=== PATIENT | male | born 1945 | race Caucasian/White ===

== ENCOUNTER 2017-10-29 15:52 | Emergency (ER) | payer MEDICARE, OTHER ==
[~2017-10-29 15:52] MED LIST: ACET325 PO; AMLO2.5T PO; NAPR250T57 PO; ONDA1TAB17 SL; OXYC1SOL5 PO; PROZ40CA PO; TAB-TAB PO
[2017-10-29 16:14] VITALS: BP 140/76; PULSE 68; RESP 18; TEMP 98; O2SAT 97
[2017-10-29 16:16] VITALS: BP 140/76; PULSE 68; RESP 18; O2SAT 96
--- NOTE | 2017-10-29 16:27 | PD ---
HPI Chief Complaint: Chest Pain Time Seen by Provider: 16:20 Travel History International Travel<30 days: No Contact w/Intl Traveler<30days: No Traveled to known affect area: No History of Present Illness HPI 72-year-old male patient presents emergency department for evaluation of irregular heartbeat. Patient was walking his dog earlier and felt like his chest was heavy and called 911. When EMS arrived they told him he might have atrial fibrillation. Patient denies any chest pain, shortness breath, nausea, vomiting, diarrhea, lightheadedness. Patient states his chest never hurt but it felt heavy. The heaviness did not radiate but said directly in the middle of his chest. Patient states he drank 3 cups of coffee this morning, had diet Coke with lunch and then a glass of wine. He is not sure if that contributed to this event. Patient's major medical history is anxiety/depression and arthritis. PFSH Past Medical History Arthritis: Yes Asthma: Yes ( A CHILD) Autoimmune Disease: No Blood Disorders: No Anxiety: Yes Depression: Yes Cancer: Yes (SKIN, ) Cardiovascular Problems: Yes ( MURMUR ) Chemotherapy: No Diabetes: No Diminished Hearing: Yes Endocrine: No Gastrointestinal Disorders: Yes (ACID REFLUX) GERD: Yes Glaucoma: No Genitourinary: No Hepatitis: No Hiatal Hernia: No Hypertension: No Immune Disorder: No Implanted Vascular Access Dvce: Yes Medical other: No Musculoskeletal: Yes (OSTEOARTHRITIS, OSTEOPOROSIS) Neurologic: No Psychiatric: Yes ( SEVERE CLAUSTRAPHOBIA, "BIOCHEMICAL" DEPRESSION ) Reproductive: No Respiratory: No Radiation Therapy: No Thyroid Disease: No ?: Not Past Surgical History Abdominal Surgery: Yes (ABD HERNIA REPAIR WITH MESH 1989; ABDOMIPLASTY 1989) AICD: No Appendectomy: Yes Body Medical Devices: BILATERAL KNEE REPLACEMENT Cardiac Surgery: No Ear Surgery: No Endocrine Surgery: No Eye Surgery: No Genitourinary Surgery: No Joint Replacement: Yes (ALEJANDRA. KNEES, RIGHT HIP) Neurologic Surgery: Yes (2008 KYPHOPLASTY X 2) Oral Surgery: Yes (TONSILLECTOMY ) Pacemaker: No Thoracic Surgery: No Other Surgery: Yes (SUBMUCOUSAL RESECTIONS/ NOSE SINUSES,L1 SX. 09/21/08) Social History Alcohol Use: Yes (BEER, WINE 4-5 DRINKS DAILY ) Tobacco Use: No Substance Use: No Allergies-Medications (Allergen,Severity, Reaction): Coded Allergies: enoxaparin (Unverified Allergy, Intermediate, RASH, 10/29/17) latex (Unverified Allergy, Intermediate, Rash, 10/29/17) diclofenac (Unverified Adverse Reaction, Intermediate, nausea gi upset, ) 04/04/16 DENIES ALLERGY etodolac (Unverified Adverse Reaction, Intermediate, nausea gi upset, 10/29) 04/04/16 DENIES ALLERGY flurbiprofen (Unverified Adverse Reaction, Intermediate, nausea gi upset, 10/29/17) 04/04/16 DENIES ALLERGY ibuprofen (Unverified Adverse Reaction, Intermediate, nausea gi upset, 10/29/17) 04/04/16 DENIES ALLERGY indomethacin (Unverified Adverse Reaction, Intermediate, nausea gi upset, 10/29/17) 04/04/16 DENIES ALLERGY ketoprofen (Unverified Adverse Reaction, Intermediate, nausea gi upset, ) 04/04/16 DENIES ALLERGY ketorolac (Unverified Adverse Reaction, Intermediate, nausea gi upset, 10/29/17) 04/04/16 DENIES ALLERGY naproxen (Unverified Adverse Reaction, Intermediate, nausea gi upset, 10/29) 04/04/16 DENIES ALLERGY oxaprozin (Unverified Adverse Reaction, Intermediate, nausea gi upset, 10/29/17) 04/04/16 DENIES ALLERGY Reported Meds & Prescriptions Reported Meds & Active Scripts Active Amlodipine Besylate 2.5 mg (Amlodipine Besylate) 2.5 Mg Tab 1 Tab PO DAILY 30 Days Oxycodone/Acetaminophen 5 mg/325 mg 5 mg/325 mg Tab 1 Tab PO Q4H PRN Reported Ondansetron Hcl (Ondansetron HCl) 8 Mg Tab 8 Mg SL DIRECTED PRN Tylenol (Acetaminophen) 325 Mg Tab 650 Mg PO BID Naprosyn (Naproxen) 250 Mg Tab 500 Mg PO BID Multivitamin (Multivitamins) 1 Tab Tab 1 Tab PO DAILY Prozac (Fluoxetine HCl) 40 Mg Cap 80 Mg PO DAILY Review of Systems Except as stated in HPI: all other systems reviewed are Neg Physical Exam Narrative GENERAL: Well-nourished, well-developed 72-year-old male patient in no acute distress. Nontoxic appearing. SKIN: Focused skin assessment warm/dry. HEAD: Normocephalic. Atraumatic. EYES: No scleral icterus. No injection or drainage. NECK: Supple, trachea midline. No JVD or lymphadenopathy. CARDIOVASCULAR: Regular rate and rhythm without murmurs, gallops, or rubs at this time. RESPIRATORY: Breath sounds equal bilaterally. No accessory muscle use. GASTROINTESTINAL: Abdomen soft, non-tender, nondistended. MUSCULOSKELETAL: No obvious deformity, ecchymosis, erythema, cyanosis, or edema. BACK: Nontender without obvious deformity. No CVA tenderness. Data Data Last Documented VS Vital Signs Date Time Temp Pulse Resp B/P (MAP) Pulse Ox O2 Delivery O2 Flow Rate FiO2 10/29/17 16:16 68 18 140/76 (97) 96 Room Air 10/29/17 16:14 98.0 Orders Orders Electrocardiogram (10/29/17 16:24) Basic Metabolic Panel (Bmp) (10/29/17 16:24) Ckmb (Isoenzyme) Profile (10/29/17 16:24) Complete Blood Count With Diff (10/29/17 16:24) Magnesium (Mg) (10/29/17 16:24) Prothrombin Time / Inr (Pt) (10/29/17 16:24) Act Partial Throm Time (Ptt) (10/29/17 16:24) Troponin I (10/29/17 16:24) Chest, Single Ap (10/29/17 16:24) Ecg Monitoring (10/29/17 16:24) Bilateral Bp Monitoring (10/29/17 16:24) Iv Access Insert/Monitor (10/29/17 16:24) Oximetry (10/29/17 16:24) Oxygen Administration (10/29/17 16:24) Sodium Chloride 0.9% Flush (Ns Flush) (10/29/17 16:30) Labs Laboratory Tests Test 10/29/17 16:50 White Blood Count 6.8 TH/MM3 Red Blood Count 4.33 MIL/MM3 Hemoglobin 13.2 GM/DL Hematocrit 39.5 % Mean Corpuscular Volume 91.2 FL Mean Corpuscular Hemoglobin 30.6 PG Mean Corpuscular Hemoglobin Concent 33.5 % Red Cell Distribution Width 13.6 % Platelet Count 227 TH/MM3 Mean Platelet Volume 7.3 FL Neutrophils (%) (Auto) 65.9 % Lymphocytes (%) (Auto) 19.1 % Monocytes (%) (Auto) 11.0 % Eosinophils (%) (Auto) 3.3 % Basophils (%) (Auto) 0.7 % Neutrophils # (Auto) 4.5 TH/MM3 Lymphocytes # (Auto) 1.3 TH/MM3 Monocytes # (Auto) 0.7 TH/MM3 Eosinophils # (Auto) 0.2 TH/MM3 Basophils # (Auto) 0.0 TH/MM3 CBC Comment DIFF FINAL Differential Comment Prothrombin Time 11.4 SEC Prothromb Time International Ratio 1.1 RATIO Activated Partial Thromboplast Time 25.5 SEC Blood Urea Nitrogen 19 MG/DL Creatinine 0.91 MG/DL Random Glucose 82 MG/DL Calcium Level 8.3 MG/DL Magnesium Level 2.2 MG/DL Sodium Level 137 MEQ/L Potassium Level 3.9 MEQ/L Chloride Level 102 MEQ/L Carbon Dioxide Level 29.9 MEQ/L Anion Gap 5 MEQ/L Estimat Glomerular Filtration Rate 81 ML/MIN Total Creatine Kinase 87 U/L Troponin I LESS THAN 0.02 NG/ML MDM Medical Decision Making Medical Screen Exam Complete: Yes Emergency Medical Condition: Yes Differential Diagnosis Differential diagnoses include but not limited to A. fib, electrolyte abnormality, coronary event, arrhythmia Narrative Course 72-year-old male patient presents emergency department for evaluation of chest pressure. Patient called EMS while walking his dog and he was found to be an A. fib. Patient was transported to the hospital. Upon arrival to the hospital A. fib had resolved spontaneously. CBC, CMP, magnesium, PT/INR, troponin, chest x-ray ordered and pending. EKG ordered and pending. EKG shows sinus rhythm. Blood work shows no acute abnormalities. Patient was discharged home with instructions to start a full dose aspirin daily. 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 Diagnosis Primary Impression: Atrial fibrillation Qualified Codes: I48.91 - Unspecified atrial fibrillation Referrals: [facility] Primary Care Physician Patient Instructions: A-fib (Atrial Fibrillation) (ED), General Instructions Additional Instructions: Please return to emergency department if your symptoms return or worsen. Follow up with your primary care provider. Start taking full dose 325mg aspirin daily. Disposition: 01 DISCHARGE HOME Condition: Stable Luis A,Justa GURROLA Oct 29, 2017 16:27
[2017-10-29] MEDS ORDERED: SODIUM CHLORIDE 0.9% FLUSH 10 ML FLUSH IVF PRN (16:30)
--- NOTE | 2017-10-29 16:47 | RADRPT ---
EXAM DATE/TIME: 10/29/2017 16:34 [facility] COMPARISON: No previous studies available for comparison. INDICATIONS : Palpitations. MEDICAL HISTORY : Arthritis. SURGICAL HISTORY : None. ENCOUNTER: Initial ACUITY: 1 day PAIN SCORE: 0/10 LOCATION: Bilateral chest FINDINGS: A single view of the chest demonstrates moderate enlargement of the heart. Lungs are clear. Old right-sided rib fractures are noted. Moderate to severe arthropathy is noted of the right shoulder. Left shoulder replacement is noted. CONCLUSION: Cardiomegaly without evidence of acute cardiopulmonary process. Petar Barnhart MD on October 29, 2017 at 16:44 Board Certified Radiologist. This report was verified electronically.
[2017-10-29 17:00] VITALS: BP_SYST 146; BP_SYST 165; BP_DIAS 69; BP_DIAS 78; PULSE 57; RESP 18; O2SAT 96; O2SAT 97
[2017-10-29 17:09] LABS: AUTOMATED NEUTROPHIL # 4.5 TH/MM3 (1.8-7.7); BASOPHIL % 0.7 % (0.0-2.0); EOSINOPHIL # 0.2 TH/MM3 (0-0.4); EOSINOPHIL % 3.3 % (0.0-4.0); HEMATOCRIT 39.5 % (39.0-51.0); HEMO FLAGS DIFF FINAL; LYMPH % 19.1 % (9.0-44.0); LYMPHOCYTE # 1.3 TH/MM3 (1.0-4.8); MEAN CELL VOLUME 91.2 FL (80.0-100.0); MEAN CORPUSCULAR HEMOGLOBIN 30.6 PG (27.0-34.0); MEAN CORPUSCULAR HGB CONC 33.5 % (32.0-36.0); NEUT % 65.9 % (16.0-70.0); PLATELET COUNT 227 TH/MM3 (150-450); RED BLOOD COUNT 4.33 MIL/MM3 (4.50-5.90); RED CELL DISTRIBUTION WIDTH 13.6 % (11.6-17.2); WHITE BLOOD COUNT 6.8 TH/MM3 (4.0-11.0)
[2017-10-29 17:21] LABS: APTT (PATIENT) 25.5 SEC (24.3-30.1); INTERNATIONAL NORMALIZED RATIO 1.1 RATIO; PROTHROMBIN TIME - PATIENT 11.4 SEC (9.8-11.6)
[2017-10-29 17:25] LABS: ANION GAP 5 MEQ/L (5-15); BICARBONATE 29.9 MEQ/L (21.0-32.0); BLOOD UREA NITROGEN 19 MG/DL (7-18); CHLORIDE 102 MEQ/L (98-107); GLOMERULAR FILTRATION RATE 81 ML/MIN (>89); MAGNESIUM 2.2 MG/DL (1.5-2.5); SODIUM (NA) 137 MEQ/L (136-145)
[2017-10-29 17:28] LABS: CREATINE KINASE 87 U/L (39-308); POTASSIUM 3.9 MEQ/L (3.5-5.1)
[2017-10-29 18:06] VITALS: BP 142/70
--- NOTE | 2017-10-29 21:44 | EKG ---
Date Performed: 10/29/2017 Time Performed: 16:06:31 PTAGE: 72 years EKG: Sinus rhythm WITH FIRST DEGREE AV BLOCK WITH OCCASIONAL SUPRAVENTRICULAR PREMATURE COMPLEXES BORDERLINE LEFT AXIS DEVIATION INCOMPLETE RIGHT BUNDLE BRANCH BLOCK LEFT VENTRICULAR HYPERTROPHY AND ST-T CHANGE ABNORMAL ECG PREVIOUS TRACING : 09/17/2015 12.46 Compared to prior tracing no significant change DOCTOR: Bella Payan Interpretating Date/Time 10/29/2017 21:43:35
== END 2017-10-29 18:17 | disposition home or self-care (01) ==
LOC: NEPC 15:52
DX: I48.91 Unspecified atrial fibrillation (principal); I44.0 Atrioventricular block, first degree; I45.10 Unspecified right bundle-branch block; I51.7 Cardiomegaly; R94.31 Abnormal electrocardiogram [ECG] [EKG]; F41.9 Anxiety disorder, unspecified; J45.909 Unspecified asthma, uncomplicated; K21.9 Gastro-esophageal reflux disease without esophagitis; M81.0 Age-related osteoporosis without current pathological fracture
CPT/HCPCS: 71010; 80048; 82550; 83735; 84484; 85025; 85610; 85730; 93005; 99285

== ENCOUNTER 2018-06-03 07:00 | Inpatient (IN) ==
[2018-06-03] MEDS ORDERED: Metoprolol Tartrate 25 MG Tablet PO SCH (08:45)
[2018-06-03] MEDS ORDERED: Chlorhexidine Gluconate 2% 1 Pack (2 Cloths) TOPICAL SCH (08:45)
[2018-06-03] MEDS ORDERED: Sodium Chlor 0.9% Inj 500 ML IV.SIG SCH (09:00)
[2018-06-03] MEDS ORDERED: ceFAZolin 2 GM Premix Inj 2 GM/50 ML PIGGYBACK IV.SIG SCH (09:00)
[2018-06-03] MEDS ORDERED: Chlorhexidine 4% Topical 120 APPLIC/120 ML Bottle TOPICAL SCH (09:00)
[2018-06-03] MEDS ORDERED: TRANEXAMIC ACID IV.SIG SCH ×2 (09:00→12:00)
[2018-06-03] MEDS ORDERED: SODIUM CHLOR 0.9% IV.SIG SCH ×2 (09:00→12:00)
[2018-06-03] MEDS ORDERED: fentaNYL Citrate Inj 100 MCG/2 ML Ampul ONE (09:51)
[2018-06-03] MEDS ORDERED: Famotidine PF Inj 20 MG/2 ML Vial ONE (09:51)
[2018-06-03] MEDS ORDERED: Sodium Chlor 0.9% Inj 40 ML, Bupivacaine Liposo PF 1.3% Inj 20 ML P-ARTICULR SCH ×2 (10:00)
[2018-06-03] MEDS ORDERED: Neostigmine Inj 5 MG/5 ML Syringe IV.PUSH ONE (12:00)
[2018-06-03] MEDS ORDERED: Lidocaine PF 1% Inj 5 ML Syringe INFILTRATN ONE (12:00)
[2018-06-03] MEDS ORDERED: Glycopyrrolate Inj 1 MG/5 ML Syringe IV.PUSH ONE (12:00)
--- NOTE | 2018-06-03 13:55 | P.OP ---
- Preoperative Diagnosis (1) Primary osteoarthritis, right shoulder - Postoperative Diagnosis (1) Primary osteoarthritis, right shoulder Date of procedure: 06/03/18 Procedure: Right total shoulder using [employer] prosthesis. Anesthesia: GETA, regional (Interscalene block), local (Exparel) Surgeon: Ersamo Qeuen MD Application Architect Manager: BART Donaldson Estimated blood loss (mL): 1,050 Pathology: none sent Operation and Findings: Indications and findings: This 72-year-old man has had long-standing arthritis in his shoulder which has been nonresponsive to conservative measures. He has had less and less ability to use his arm. He has pain on motion. He has not responded to conservative measures. He cannot take multiple anti-inflammatory agents because of allergies. Physical findings showed limited range of motion in his right shoulder. X-rays showed severe osteoarthritis with eburnation, osteophytes and loss of cartilage to [id number]. Intraoperative findings: There was severe osteoarthritis in the right shoulder with large osteophytes in the glenoid and head. There were degenerative cysts in the glenoid. Implants: This was a [employer] prosthesis. The humeral stem was a size 16 x 133 mm. The humeral head was a size 52 x 17 mm, standard. The glenoid was a size 48 mm keeled. The cement was Simplex. After an interscalene block regional anesthetic was administered, the patient was brought to the clean-air operating suite and a general endotracheal anesthetic was administered. The patient was then placed into a beachchair position with a bolster under the shoulder. The shoulder was then prepped with alcohol, Hibiclens and ChloraPrep and draped in the usual manner with the shoulder draped free. An appropriate timeout procedure was carried out. An incision was made from the clavicle overlying the area of the coracoid process following the deltopectoral groove to the level of the anterior axillary fold. The incision was deepened through the subcutaneous tissues to the deltopectoral groove. The cephalic vein was protected and reflected laterally along with the deltoid. Anterior exposure was carried out. The distal vessels were identified and ligated. The axillary nerve was identified. The a Bankart self-retaining retractor was inserted under the edge of the conjoined tendon and deltoid. Dissection was then carried out to the rotator interval. This was opened with the electrocautery and carried down to the upper portion of the subscapularis. A retractor was placed into the joint. The subscapularis was detached from the lesser tuberosity. A suture was placed through this using #1 FiberWire. The subscapularis was detached completely down to the lower end and a secondary suture placed with FiberWire at the distal end. The subscapularis was retracted out of the way. The humeral head was inspected. Capsular dissection was carried down to the glenoid. Dissection was carried out to the undersurface of the head to the level of the inferior capsule. The capsular dissection was carried out to the 6 o'clock position and slightly beyond. The humeral head was carefully exposed and the shoulder dislocated. The resection guide was positioned at the anatomic neck and stabilized with pins according to the appropriate rotation. The humeral head was then removed with the oscillating saw. This was retained on the back table for sizing purposes. Further dissection was then carried out to the glenoid is moving the glenoid labrum and other soft tissues about the glenoid. Dissection was carried distally as well. This was carried to the 6 o'clock position as well. Humeral preparation was begun. Hand reaming was initiated starting with the initial entry reamer. This was increased by 1 mm increments starting from 12 mm up to the point where further reaming would not progress at 16 millimeters. Broaching was initiated starting with the broach 2 mm smaller than the reamed size and going in 1 mm increments up to 16 millimeters. The broach was left in place. Calcar planing was carried out by hand. Glenoid preparation was begun by identifying the center of the glenoid using the sizing prosthesis for a size 48 millimeter prosthesis. Multiple osteophytes were removed after exposing the glenoid. After this was marked, the initial drill hole was made initially with just a drill and then followed by the use of the centering guide. Reaming of the glenoid was then carried out with the appropriate size reamer. The drill guide was positioned in place. The distal drill holes were then made. It was felt that the keeled prosthesis would be more appropriate at this time. The secondary guide was positioned in place and the secondary drill holes were made. The trial prosthesis/punch was impacted into place and then subsequently removed. The size appeared to be appropriate. The glenoid was then irrigated well with antibiotic solution. The keel site was dried. Simplex cement was inserted into the heel site followed by placement of the glenoid prosthesis. Excess cement was trimmed. Attention was directed to the humerus. The trial prosthesis was placed onto the broach. The size for the head was determined to be 52 x 17. The shoulder was taken through a range of motion to evaluate stability and mobility. There was excellent stability and excellent mobility. The offset was appropriate. The trial prosthesis was removed followed by removal broach. The medullary canal was irrigated well. The humeral component was impacted into place and seated appropriately. The humeral head prosthesis was then positioned in place appropriately and impacted in place after cleaning and drying the receptacle for the trunnion. The shoulder was taken through a range of motion and checked for stability and mobility which were comparable to that with the trial. Local anesthesia was administered throughout the shoulder with bupivacaine liposomal. Wound closure commenced using #1 FiberWire Rafi-Cesar sutures to reattach the subscapularis. The rotator interval was closed with #1 FiberWire [id number] sutures. Motion was checked and found to be excellent. The deltopectoral interval was approximated with 0 Vicryl interrupted figure-of- eight sutures. Subcutaneous tissues were closed with 2-0 Vicryl interrupted simple sutures with buried knots. Skin was closed with continuous subcuticular closure of 4-0 Monocryl. The wound was dressed with Dermabond Prineo followed by dry sterile dressing. The shoulder was placed into a cradle sling. The patient was transferred from the operating room to the recovery room in satisfactory condition having tolerated the procedure well. Counts are correct. Specimens: None. Estimated blood loss: 1050 milliliters
[2018-06-03] MEDS ORDERED: Bisacodyl 10 MG Supp RECTAL PRN (13:59)
[2018-06-03] MEDS ORDERED: Zolpidem Tartrate 5 MG Tablet PO PRN (13:59)
[2018-06-03] MEDS ORDERED: Morphine Inj 4 MG/ML Vial IV.PUSH PRN (13:59)
[2018-06-03] MEDS ORDERED: Aluminum/Magnesium/Simethacone Susp 30 ML UDC PO PRN (13:59)
[2018-06-03] MEDS ORDERED: Tranexamic Acid Inj 0 MG in Sodium Chlor 0.9% Inj 100 ML IV.SIG ONE (13:59)
[2018-06-03] MEDS ORDERED: Post-op Orders (for Pharmacy) OTHER STA (13:59)
[2018-06-03] MEDS ORDERED: Acetaminophen 325 MG Tablet PO PRN (13:59)
--- NOTE | 2018-06-03 15:01 | XR ---
EXAM DATE: 06/03/2018 2:48 PM EDT AGE/SEX: 72 years / Male INDICATIONS: Post op right shoulder. CLINICAL DATA: This is the patient's initial encounter. Patient reports that signs and symptoms have been present for 1 day and indicates a pain score of Nonresponsive. MEDICAL/SURGICAL HISTORY: None. None. COMPARISON: No prior exams available for comparison. FINDINGS: 2 views of the right shoulder joint demonstrates postsurgical changes following joint replacement. Th e prosthetic humeral head has been placed. It is well seated within the glenoid fossa. Bony structure s are otherwise intact. CONCLUSION: Satisfactory postoperative appearance of the right shoulder joint following replacement. Electronically signed by: Petar Barnhart MD 06/03/2018 3:00 PM EDT
[2018-06-03 15:26] LABS: Hemoglobin 11.6 gm/dL (13.0-17.0)
[2018-06-03] MEDS: ceFAZolin 2 GM Premix Inj 2 GM/50 ML PIGGYBACK IV.SIG SCH ×2 (16:33→21:20)
--- NOTE | 2018-06-03 17:52 | P.CON ---
History of Present Illness Service: [facility] Hospitalist Primary Care Provider: Bob Layne MD Family Provider: Bob Layne MD Chief Complaint: s/p elective shoulder surgery History of Present Illness: This 72-year-old man has had long-standing arthritis in his shoulder, hypertension, depression. Hospitalist is consulted for medical management. He has not responded to conservative measures for his long-standing arthritis in his shoulder. X-rays showed severe osteoarthritis with eburnation, osteophytes and loss of cartilage to [id number]. The patient was scheduled for elective surgery by Dr. Steve on 06/03/18. Pain is controlled by medications. Patient denies having any chest pain or shortness of breath, saturating well on room air. No nausea vomiting no diarrhea or constipation. No urinary complaints. Patient says he has some sore throat after surgery. Says surgery went well and he has no pain and he can move his fingers without any problems. Family History: Father: Depression, CHF, in 2007 from CHF Review of Systems Reviewed and negative except as mentioned in HPI PMFSH - History History Provided By: Patient - Medical History Medical History: Medical History (Last Reviewed 06/03/18 @ 16:54 by Rosey Acevedo RN) Anemia Arthritis Depressed Hypertension Pain in right shoulder - Surgical History Surgical History: Surgical History (Last Reviewed 06/03/18 @ 16:54 by Rosey Acevedo RN) History of abdominoplasty History of appendectomy History of kyphoplasty History of laminectomy History of left shoulder replacement History of total bilateral knee replacement History of total right hip arthroplasty Hx of tonsillectomy - Tobacco History Second Hand Smoke Exposure: No Tobacco Use In Past 30 Days: No Smoking Status: Never smoker - Alcohol History How Often Do You Have a Drink Containing Alcohol: 4 or more times a week - Substance Use History Substance History: No History of Abuse - Travel History Recent Travel in the [place] Within the Last 8 Weeks: No Recent Travel Out of the Country Within the Last 8 Weeks: No - Immunization History Tetanus Immunization: Unsure Hx Influenza Vaccine This Season: No Medications and Allergies Active Medications: Active Medications Acetaminophen (Tylenol) 650 mg PO Q6H PRN PRN Reason: Pain Less Than 3 On Scale Hydrocodone Bitart/Acetaminophen ([place] 7.5/325) 1 tab PO Q4H PRN PRN Reason: PAIN SCALE 4 TO 6 MODERATE Hydrocodone Bitart/Acetaminophen ([place] 7.5/325) 2 tab PO Q4H PRN PRN Reason: PAIN SCALE 7 TO 10 SEVERE Al Hydrox/Mg Hydrox/Simethicone (Mag-Al Plus Susp Liq) 30 ml PO Q6H PRN PRN Reason: INDIGESTION Al Hydroxide/Mg Hydroxide (Milk Of Magnesia Liq) 30 ml PO BID PRN PRN Reason: Mild Constipation Aspirin (Aspirin Chew) 81 mg PO BID [facility] Bisacodyl (Dulcolax Supp) 10 mg RECTAL DAILY PRN PRN Reason: SEVERE CONSITIPATION Chlorhexidine Gluconate (Chlorhexidine 2% Cloth) 3 pack TOPICAL MULESER [facility] Stop: 06/06/18 08:44 Last Admin: 06/03/18 09:00 Dose: 3 pack Chlorhexidine Gluconate (Hibiclens 4% Topical) 1 applicatio TOPICAL ONCE [facility] Stop: 06/07/18 08:59 Diphenhydramine HCl (Benadryl) 25 mg PO Q6H PRN PRN Reason: ITCHING Fluoxetine HCl (Prozac) 80 mg PO DAILY JEFF Lactated Ringer's (Lr 1000 Ml Inj) 1,000 mls @ 30 mls/hr IV.SIG .Q24H [facility] Stop: 06/06/18 08:44 Last Admin: 06/03/18 09:00 Dose: 30 mls/hr Sodium Chloride (Ns Inj) 500 mls @ 30 mls/hr IV.SIG .Q10H [facility] Stop: 06/06/18 08:44 Cefazolin Sodium/Dextrose (Ancef 2 Gm Premix Inj) 2 gm in 50 mls @ 100 mls/hr IV.SIG MULESER [facility] Stop: 06/07/18 08:59 Last Infusion: 06/03/18 10:44 Dose: Infused Tranexamic Acid 1,259 mg/ (Sodium Chloride) 112.59 mls @ 200 mls/hr IV.SIG UNSCH X1 [facility] Stop: 06/03/18 18:00 Last Infusion: 06/03/18 14:00 Dose: Infused Cefazolin Sodium/Dextrose (Ancef 2 Gm Premix Inj) 2 gm in 50 mls @ 100 mls/hr IV.SIG Q6H [facility] Stop: 06/04/18 04:29 Last Infusion: 06/03/18 17:30 Dose: 100 mls/hr Lactated Ringer's (Lr 1000 Ml Inj) 1,000 mls @ 80 mls/hr IV.CONT .[id number] [facility] Last Admin: 06/03/18 15:08 Dose: 80 mls/hr Ketorolac Tromethamine (Toradol Inj) 15 mg IV.PUSH Q6H [facility] Stop: 06/05/18 08:01 Lactulose (Lactulose Liq) 30 ml PO DAILY PRN PRN Reason: SEVERE CONSITIPATION Lisinopril (Prinivil) 10 mg PO DAILY [facility] Metoprolol Tartrate (Lopressor) 25 mg PO MULESER [facility] Stop: 06/06/18 08:44 Miscellaneous Information ([facility] [place] [facility] Information) 1 each OTHER UNSCH PRN PRN Reason: SEE LABEL COMMENTS Stop: 06/04/18 14:16 Morphine Sulfate (Morphine Inj) 2 mg IV.PUSH Q3H PRN PRN Reason: BREAKTHROUGH PAIN Multivitamins (Theragran) 1 tab PO DAILY [facility] Ondansetron HCl (Zofran Odt) 4 mg PO Q6H PRN PRN Reason: NAUSEA OR VOMITING Povidone Iodine (Betadine 5% Antisepsis Kit) 1 applicatio EACH NARE MULESER [facility] Stop: 06/06/18 08:44 Last Admin: 06/03/18 09:00 Dose: 1 applicatio Senna/Docusate Sodium ([place]olores-Colace) 1 tab PO BID [facility] Sennosides (Senokot) 17.2 mg PO BID PRN PRN Reason: Moderate Constipation Sodium Chloride (Ns Flush) 2 ml IV.FLUSH BID [facility] Sodium Chloride (Ns Flush) 2 ml IV.FLUSH PRN PRN PRN Reason: FLUSH AFTER USING IV ACCESS Zolpidem Tartrate (Ambien) 5 mg PO HS PRN PRN Reason: INSOMNIA Allergies Allergy/AdvReac Type Severity Reaction Status Date / Time enoxaparin Allergy Intermediate RASH Verified 06/03/18 17:30 latex Allergy Intermediate Rash Verified 06/03/18 17:30 diclofenac AdvReac Intermediate nausea gi Verified 06/03/18 17:30 upset etodolac AdvReac Intermediate nausea gi Verified 06/03/18 17:30 upset flurbiprofen AdvReac Intermediate nausea gi Verified 06/03/18 17:30 upset ibuprofen AdvReac Intermediate nausea gi Verified 06/03/18 17:30 upset indomethacin AdvReac Intermediate nausea gi Verified 06/03/18 17:30 upset ketoprofen AdvReac Intermediate nausea gi Verified 06/03/18 17:30 upset ketorolac AdvReac Intermediate nausea gi Verified 06/03/18 17:30 upset naproxen AdvReac Intermediate nausea gi Verified 06/03/18 17:30 upset oxaprozin AdvReac Intermediate nausea gi Unverified 10/29/17 16:18 upset Home Medications Medication Instructions Recorded Confirmed Type acetaminophen [Tylenol] 1,300 mg PO DAILY PRN 05/23/18 06/03/18 History fluoxetine [Prozac] 80 mg PO DAILY 05/23/18 06/03/18 History lisinopril 10 mg PO DAILY 05/23/18 06/03/18 History meloxicam 15 mg PO DAILY 05/23/18 06/03/18 History [id number]-CD-lycopen-lutein 1 tab PO DAILY 05/23/18 06/03/18 History [Centrum Silver Ultra Men's] Physical Exam Vital signs: Vital Signs 06/03/18 09:07 06/03/18 09:30 06/03/18 14:19 Temperature 97.3 F L 97.6 F Pulse Rate 78 53 L 75 Respiratory Rate 18 12 Blood Pressure 177/83 H 204/91 H Pulse Oximetry 96 100 96 06/03/18 14:30 06/03/18 14:45 06/03/18 15:00 Temperature Pulse Rate 69 71 61 Respiratory Rate 12 20 11 L Blood Pressure 187/87 H 142/75 H 153/71 H Pulse Oximetry 97 96 94 L 06/03/18 15:15 06/03/18 15:30 06/03/18 16:16 Temperature 97.6 F Pulse Rate 60 57 L 71 Respiratory Rate 8 L 11 L 20 Blood Pressure 140/65 124/59 L 128/55 L Pulse Oximetry 95 96 96 06/03/18 17:00 Temperature 97.4 F L Pulse Rate 59 L Respiratory Rate 16 Blood Pressure 134/67 Pulse Oximetry 93 L Intake & Output 06/02/18 06/03/18 06/03/18 18:59 06:59 18:59 Intake Total 4775.18 / 4775.18 Output Total 2950 / 2950 Balance 1825.18 / 1825.18 Weight 125.9 kg Intake: IV 275.18 / 275.18 Cyklokapron Inj 1,259 MG In NS 225.18 / 225.18 Inj 100 ML @ 200 mls/hr IV.SIG UNSCH X1 JEFF Rx#:[id number] Ancef 2 GM Premix Inj 2 gm In 50 / 50 50 ml @ 100 mls/hr IV.SIG Q6H JEFF Rx#:[id number] Anesthesia Amount 4500 / 4500 Output: Estimated Blood Loss 1050 / 1050 Urine Amount (Catheter) 1900 / 1900 Straight 1900 / 1900 Other: Date of Last Bowel Movement 06/02/18 Weight On Admission 125.9 kg Narrative: GENERAL: Patient in nad. CARDIOVASCULAR: Regular rate and rhythm without murmurs, gallops, or rubs. RESPIRATORY: Breath sounds equal bilaterally. No accessory muscle use. GASTROINTESTINAL: Abdomen soft, non-tender, nondistended. MUSCULOSKELETAL: S/P shoulder surgery. neurovascular intact. No cyanosis, or edema. BACK: Nontender without obvious deformity. No CVA tenderness. - Urinary Catheter Management Straight Cath placed during this visit: no Reason for continuing: Not indwelling catheter Assessment and Plan - Plan Primary osteoarthritis, right shoulder Right total shoulder using [place] ReUnion prosthesis on 06/03/[address] Queen Management per surgeon Bowel regimen, antiemetics as needed Sore throat after surgery , add cepachol del Chronic medical problems appears at baseline. Hypertension, depression. Restart home medications as appropriate. Monitor vital signs. DVT prophylaxis per surgeonFederico Discussed with the patient, nurse
[2018-06-03] MEDS: Ketorolac Inj 30 MG/ML (IVP) Vial IV.PUSH SCH ×2 (20:50→21:20)
[2018-06-03] MEDS: Senna/Docusate Sodium 8.6/50 MG Tablet PO SCH (21:19)
[2018-06-03] MEDS: Benzocaine/Menthol 15 MG/3.6 MG SF Lozenge BUCCAL PRN (21:19)
[2018-06-04] MEDS: Ketorolac Inj 30 MG/ML (IVP) Vial IV.PUSH SCH ×3 (02:29→14:11)
[2018-06-04] MEDS: ceFAZolin 2 GM Premix Inj 2 GM/50 ML PIGGYBACK IV.SIG SCH (04:41)
[2018-06-04] MEDS: Benzocaine/Menthol 15 MG/3.6 MG SF Lozenge BUCCAL PRN (05:42)
[2018-06-04 06:46] LABS: Hematocrit 33.1 % (39.0-51.0); Hemoglobin 11.1 gm/dL (13.0-17.0)
--- NOTE | 2018-06-04 07:36 | P.PNOP ---
Subjective Interval history: He is doing well. He has minimal complaints related to his knee at this time. The block worked fairly well but he has had some increased pain after the effects abated. Physical Exam Vital signs: Vital Signs 06/03/18 09:07 06/03/18 09:30 06/03/18 14:19 Temperature 97.3 F L 97.6 F Pulse Rate 78 53 L 75 Respiratory Rate 18 12 Blood Pressure 177/83 H 204/91 H Pulse Oximetry 96 100 96 06/03/18 14:30 06/03/18 14:45 06/03/18 15:00 Temperature Pulse Rate 69 71 61 Respiratory Rate 12 20 11 L Blood Pressure 187/87 H 142/75 H 153/71 H Pulse Oximetry 97 96 94 L 06/03/18 15:15 06/03/18 15:30 06/03/18 16:16 Temperature 97.6 F Pulse Rate 60 57 L 71 Respiratory Rate 8 L 11 L 20 Blood Pressure 140/65 124/59 L 128/55 L Pulse Oximetry 95 96 96 06/03/18 17:00 06/03/18 20:25 06/04/18 00:30 Temperature 97.4 F L 98.0 F 97.8 F Pulse Rate 59 L 61 60 Respiratory Rate 16 17 17 Blood Pressure 134/67 130/67 130/63 Pulse Oximetry 93 L 92 L 92 L 06/04/18 01:25 06/04/18 05:15 Temperature 98.2 F Pulse Rate 64 Respiratory Rate 16 18 Blood Pressure 170/94 H Pulse Oximetry 94 L Intake & Output 06/03/18 06/04/18 06/04/18 18:59 06:59 18:59 Intake Total 4825.18 / 4825.18 530 / 530 Output Total 2950 / 2950 Balance 1875.18 / 1875.18 530 / 530 Weight 125.9 kg Intake: IV 325.18 / 325.18 50 / 50 Cyklokapron Inj 1,259 MG In NS 225.18 / 225.18 Inj 100 ML @ 200 mls/hr IV.SIG UNSCH X1 JEFF Rx#:[id number] Ancef 2 GM Premix Inj 2 gm In 100 / 100 50 / 50 50 ml @ 100 mls/hr IV.SIG Q6H JEFF Rx#:[id number] Oral 480 / 480 Anesthesia Amount 4500 / 4500 Output: Estimated Blood Loss 1050 / 1050 Urine Amount (Catheter) 1900 / 1900 Straight 1900 / 1900 Other: Date of Last Bowel Movement 06/02/18 06/02/18 # Bowel Movements 0 Weight On Admission 125.9 kg Narrative: He is resting comfortably, supine in bed. He is wearing a sling and swath. The neurovascular status is intact. His dressing is dry and intact. - Urinary Catheter Management Straight Cath placed during this visit: no Reason for continuing: Not indwelling catheter Results - Labs CBC & Chem 7: 06/04/18 05:46 Laboratory Results - last 24 hr 06/03/18 06/03/18 06/04/18 09:00 15:15 05:46 Hgb 11.6 L 11.1 L Hct 35.0 L 33.1 L Blood Type O Positive Antibody Screen Negative - Imaging Impressions Shoulder X-Ray 06/03/18 13:55 CONCLUSION: Satisfactory postoperative appearance of the right shoulder joint following replacement. Assessment and Plan - Ortho Post Op Day # 1 - Problem List (1) Status post total replacement of right shoulder Code(s): Z96.611 - Presence of right artificial shoulder joint Status: Acute Onset Date: ~06/03/18 Plan: Continue postop care and PT. - Assessment and Plan Condition: Good. Orthopedically stable. DVT prophylaxis: TEDs, aspirin, sequentials. Discharge plans: Home with home health care after a stay in a care home facility ([facility]). An appointment was scheduled through the office. Prescriptions: [place] 7.5/325; Patient is having significant pain caused by recent surgery which will last more than 3 days. Trial of Tylenol has not helped. I believe that it is medically necessary to treat patients pain because it is affecting patients ability to participate in postoperative rehabilitation and perform activities of daily living in a comfortable and efficient manner.
--- NOTE | 2018-06-04 07:57 | P.DCO ---
- Occupational Therapy Right Upper Extremity Weight Bearing: Non-weight bearing Right Upper Extremity Range of Motion: Active assistive ROM (Active, active assisted and gentle passive range of motion. Pendulum exercises. Forward flexion passive table slides.) Additional instructions: Do not externally rotate beyond neutral until 6 weeks postop. Do not do forcible internal rotation until 6 weeks postop. - Nursing Nursing: Dressing changes Dressing changes: Daily dressing change, Coverderm/Primapore Additional instructions: Do not remove Dermabond Prineo. - Certification Need for Home Health services: I have seen patient Edgard Prieto on 06/04/18. My clinical findings support the need for the requested home health care services because: Need for Home Health Services: Limited mobility due to disease progression, Limited ability to care for self, High risk of falls Homebound Certification: I certify that my clinical findings support that this patient is homebound because: Homebound Certification: Post-op weakness, Unsteady gait/balance, Unsafe to leave home unassisted
[2018-06-04] MEDS: Lisinopril 10 MG Tablet PO SCH (08:08)
[2018-06-04] MEDS: FLUoxetine 20 MG Capsule PO SCH (08:08)
[2018-06-04] MEDS: Senna/Docusate Sodium 8.6/50 MG Tablet PO SCH ×2 (08:12→20:17)
--- NOTE | 2018-06-04 09:19 | P.PN ---
Physical Exam Vital signs: Vital Signs 06/03/18 09:30 06/03/18 14:19 06/03/18 14:30 Temperature 97.6 F Pulse Rate 53 L 75 69 Respiratory Rate 12 12 Blood Pressure 204/91 H 187/87 H Pulse Oximetry 100 96 97 06/03/18 14:45 06/03/18 15:00 06/03/18 15:15 Temperature Pulse Rate 71 61 60 Respiratory Rate 20 11 L 8 L Blood Pressure 142/75 H 153/71 H 140/65 Pulse Oximetry 96 94 L 95 06/03/18 15:30 06/03/18 16:16 06/03/18 17:00 Temperature 97.6 F 97.4 F L Pulse Rate 57 L 71 59 L Respiratory Rate 11 L 20 16 Blood Pressure 124/59 L 128/55 L 134/67 Pulse Oximetry 96 96 93 L 06/03/18 20:25 06/04/18 00:30 06/04/18 01:25 Temperature 98.0 F 97.8 F Pulse Rate 61 60 Respiratory Rate 17 17 16 Blood Pressure 130/67 130/63 Pulse Oximetry 92 L 92 L 06/04/18 05:15 06/04/18 08:00 Temperature 98.2 F 98.1 F Pulse Rate 64 73 Respiratory Rate 18 18 Blood Pressure 170/94 H 166/75 H Pulse Oximetry 94 L 93 L Intake & Output 06/03/18 06/04/18 06/04/18 18:59 06:59 18:59 Intake Total 4825.18 / 4825.18 530 / 530 1999 Output Total 2950 / 2950 Balance 1875.18 / 1875.18 530 / 530 1999 Weight 125.9 kg Intake: IV 325.18 / 325.18 50 / 50 1999 LR 1000 mL Inj 1,000 ML @ 80 1000 / 1000 mls/hr IV.CONT .[id number] JEFF Rx# :[id number] LR 1000 mL Inj 1,000 ML @ 30 1000 / 1000 mls/hr IV.SIG .Q24H JEFF Rx#: [id number] Cyklokapron Inj 1,259 MG In NS 225.18 / 225.18 Inj 100 ML @ 200 mls/hr IV.SIG UNSCH X1 JEFF Rx#:[id number] Ancef 2 GM Premix Inj 2 gm In 100 / 100 50 / 50 50 ml @ 100 mls/hr IV.SIG Q6H JEFF Rx#:[id number] Oral 480 / 480 Anesthesia Amount 4500 / 4500 Output: Estimated Blood Loss 1050 / 1050 Urine Amount (Catheter) 1900 / 1900 Straight 1900 / 1900 Other: Date of Last Bowel Movement 06/02/18 06/02/18 # Bowel Movements 0 Weight On Admission 125.9 kg Narrative: Subjective: BP into a higher side prob 2/2 pain Add vasotec IV 2.5 mg IV if SBP > 160 Patient also with urinary retention. Give Flomax. Consult urology. Check UA. Otherwise patient denies having any fever or chills no suprapubic pain. Physical examination: GENERAL: Patient in nad. CARDIOVASCULAR: Regular rate and rhythm without murmurs, gallops, or rubs. RESPIRATORY: Breath sounds equal bilaterally. No accessory muscle use. GASTROINTESTINAL: Abdomen soft, non-tender, nondistended. MUSCULOSKELETAL: S/P shoulder surgery. On sling and swath, neurovascular intact. No cyanosis, or edema. BACK: Nontender without obvious deformity. No CVA tenderness. - Urinary Catheter Management Straight Cath placed during this visit: no Reason for continuing: Not indwelling catheter Assessment and Plan - Plan Primary osteoarthritis, right shoulder Right total shoulder using [place] ReUnion prosthesis on 06/03/[address] Queen Management per surgeon Bowel regimen, antiemetics as needed Sore throat after surgery , add cepachol del HTN uncontrolled BP into a higher side prob 2/2 pain Add vasotec IV 2.5 mg IV if SBP > 160 Continue lisinopril Monitor BP and adjust as need Chronic medical problems appears at baseline. Hypertension, depression. Restart home medications as appropriate. Monitor vital signs. DVT prophylaxis per surgeon, Lovenox Discussed with the patient, nurse - Urinary Catheter Management Straight Cath placed during this visit: yes, but has since been removed by the nurse Reason for continuing: Not indwelling catheter Insertion date: 06/04/18 Insertion time: 06:00 Removal date: 06/04/18 Removal time: 06:15 Results - Labs CBC & Chem 7: 06/04/18 11:38 06/04/18 11:38 Laboratory Results - last 24 hr 06/03/18 06/03/18 06/04/18 09:00 15:15 05:46 Hgb 11.6 L 11.1 L Hct 35.0 L 33.1 L Blood Type O Positive Antibody Screen Negative - Imaging Impressions Shoulder X-Ray 06/03/18 13:55 CONCLUSION: Satisfactory postoperative appearance of the right shoulder joint following replacement. Assessment and Plan - Plan Primary osteoarthritis, right shoulder Right total shoulder using Diana ReUnion prosthesis on 06/03/[address] Queen Management per surgeon Bowel regimen, antiemetics as needed Sore throat after surgery , add cepachol del Chronic medical problems appears at baseline. Hypertension, depression. Restart home medications as appropriate. Monitor vital signs. DVT prophylaxis per surgeon, Federico Discussed with the patient, nurse
[2018-06-04 12:30] LABS: Baso # (Auto) 0.1 th/mm3 (0.0-0.2); Baso % (Auto) 0.4 % (0.0-2.0); Eos # (Auto) 0.1 th/mm3 (0.0-0.4); Eos % (Auto) 0.5 % (0.0-4.0); Hematocrit 36.7 % (39.0-51.0); Hemoglobin 11.9 gm/dL (13.0-17.0); Lymph # (Auto) 1.2 th/mm3 (1.0-4.8); Lymph % (Auto) 9.3 % (9.0-44.0); Mean Corpuscular HGB Conc 32.5 % (32.0-36.0); Mean Corpuscular Hemoglobin 29.7 pg (27.0-34.0); Mean Corpuscular Volume 91.3 fL (80.0-100.0); Mean Platelet Volume 7.5 fL (7.0-11.0); Mono # (Auto) 1.8 th/mm3 (0.0-0.9); Mono % (Auto) 13.7 % (0.0-8.0); Neut # (Auto) 10.1 th/mm3 (1.8-7.7); Neut % (Auto) 76.1 % (16.0-70.0); Platelet Count 216 th/mm3 (150-450); Red Blood Count 4.02 mil/mm3 (4.50-5.90); Red Cell Distribution Width 13.7 % (11.6-17.2); White Blood Count 13.3 th/mm3 (4.0-11.0)
[2018-06-04 12:41] LABS: Alanine Aminotransferase 17 U/L (12-78); Albumin 3.3 g/dL (3.4-5.0); Anion Gap 12 meq/L (5-15); Aspartate Aminotransferase 26 U/L (15-37); Blood Urea Nitrogen 21 mg/dL (7-18); Calcium 8.8 mg/dL (8.5-10.1); Carbon Dioxide 27.2 meq/L (21.0-32.0); Chloride 96 meq/L (98-107); Glomerular Filtration Rate 70 mL/min (>89); Glucose,Random 80 mg/dL (74-106); Potassium 4.4 meq/L (3.5-5.1)
[2018-06-04 12:42] LABS: Sodium 135 meq/L (136-145)
[2018-06-04 12:44] LABS: Alkaline Phosphatase 84 U/L (45-117); Total Protein 6.6 g/dL (6.4-8.2)
[2018-06-04 15:38] LABS: Bacteria,Urine Rare /hpf; Bilirubin,Urine Negative (Negative); Clarity,Urine Clear (Clear); Color,Urine Yellow (Yellw/Straw); Glucose,Urine (UA) Negative (Negative); Leukocyte Esterase,Urine Negative (Negative); Nitrite,Urine Negative (Negative); Specific Gravity,Urine 1.008 (1.002-1.035)
[2018-06-05] MEDS: Ketorolac Inj 30 MG/ML (IVP) Vial IV.PUSH SCH ×3 (02:23→09:52)
[2018-06-05 05:13] LABS: Hematocrit 28.3 % (39.0-51.0); Hemoglobin 9.7 gm/dL (13.0-17.0)
--- NOTE | 2018-06-05 06:59 | P.PNOP ---
Subjective Interval history: Well. He is much better today than he was yesterday. He has less pain in his shoulder at this time. Physical Exam Vital signs: Vital Signs 06/04/18 08:00 06/04/18 12:00 06/04/18 16:00 Temperature 98.1 F 98.3 F 98.6 F Pulse Rate 73 77 74 Respiratory Rate 18 20 20 Blood Pressure 166/75 H 175/79 H 115/54 L Pulse Oximetry 93 L 91 L 94 L 06/04/18 22:05 06/05/18 00:30 06/05/18 02:30 Temperature 98.2 F 98.2 F Pulse Rate 71 67 Respiratory Rate 18 18 16 Blood Pressure 148/63 H 135/76 Pulse Oximetry 93 L 96 06/05/18 04:00 Temperature 98.1 F Pulse Rate 60 Respiratory Rate 18 Blood Pressure 147/67 H Pulse Oximetry 93 L Intake & Output 06/04/18 06/04/18 06/05/18 06:59 18:59 06:59 Intake Total 530 / 530 2350 / 2350 720 / 720 Output Total 1100 / 1100 675 / 675 Balance 530 / 530 1250 / 1250 45 / 45 Intake: IV 50 / 50 2350 / 2350 LR 1000 mL Inj 1,000 ML @ 80 1300 / 1300 mls/hr IV.CONT .[id number] JEFF Rx# :[id number] LR 1000 mL Inj 1,000 ML @ 30 1000 / 1000 mls/hr IV.SIG .Q24H JEFF Rx#: [id number] Ancef 2 GM Premix Inj 2 gm In 50 / 50 50 ml @ 100 mls/hr IV.SIG Q6H JEFF Rx#:[id number] Oral 480 / 480 720 / 720 Output: Urine 675 / 675 Urine Amount (Catheter) 1100 / 1100 Straight 1100 / 1100 Other: # Voids 1 Date of Last Bowel Movement 06/02/18 06/02/18 # Bowel Movements 0 0 # [place] 1 Narrative: He is resting comfortably, supine in bed, in the sling. The neurovascular status is intact. The dressing is dry and intact. - Urinary Catheter Management Straight Cath placed during this visit: yes, but has since been removed by the nurse Reason for continuing: Not indwelling catheter Insertion date: 06/04/18 Insertion time: 06:00 Removal date: 06/04/18 Removal time: 06:15 Results - Labs CBC & Chem 7: 06/05/18 03:57 06/04/18 11:38 Laboratory Results - last 24 hr 06/04/18 06/04/18 06/04/18 11:38 11:38 14:30 WBC 13.3 H RBC 4.02 L Hgb 11.9 L Hct 36.7 L MCV 91.3 MCH 29.7 MCHC 32.5 RDW 13.7 Plt Count 216 MPV 7.5 Neut % (Auto) 76.1 H Lymph % (Auto) 9.3 Desha % (Auto) 13.7 H Eos % (Auto) 0.5 Baso % (Auto) 0.4 Neut # (Auto) 10.1 H Lymph # (Auto) 1.2 Desha # (Auto) 1.8 H Eos # (Auto) 0.1 Baso # (Auto) 0.1 WBC Differential . Differential Comment Auto diff final Sodium 135 L Potassium 4.4 Chloride 96 L Carbon Dioxide 27.2 Anion Gap 12 BUN 21 H Creatinine 1.04 Estimated GFR 70 L Random Glucose 80 Calcium 8.8 Total Bilirubin 0.9 AST 26 ALT 17 Alkaline Phosphatase 84 Total Protein 6.6 Albumin 3.3 L Urine Color Yellow Urine Clarity Clear Urine pH 6.0 Ur Specific [place] 1.008 Urine Protein Negative Urine Glucose (UA) Negative Urine Ketones Negative Urine Occult Blood Moderate H Urine Nitrate Negative Urine Bilirubin Negative Urine Urobilinogen Less than 2 Ur Leukocyte Esterase Negative Urine RBC 12 H Urine WBC 1 Urine Bacteria Rare H 06/05/18 03:57 WBC RBC Hgb 9.7 L D Hct 28.3 L MCV MCH MCHC RDW Plt Count MPV Neut % (Auto) Lymph % (Auto) Desha % (Auto) Eos % (Auto) Baso % (Auto) Neut # (Auto) Lymph # (Auto) Desha # (Auto) Eos # (Auto) Baso # (Auto) WBC Differential Differential Comment Sodium Potassium Chloride Carbon Dioxide Anion Gap BUN Creatinine Estimated GFR Random Glucose Calcium Total Bilirubin AST ALT Alkaline Phosphatase Total Protein Albumin Urine Color Urine Clarity Urine pH Ur Specific [place] Urine Protein Urine Glucose (UA) Urine Ketones Urine Occult Blood Urine Nitrate Urine Bilirubin Urine Urobilinogen Ur Leukocyte Esterase Urine RBC Urine WBC Urine Bacteria Assessment and Plan - Problem List (1) Status post total replacement of right shoulder Code(s): Z96.611 - Presence of right artificial shoulder joint Status: Acute Onset Date: ~06/03/18 - Assessment and Plan Condition: Good. Orthopedically stable. DVT prophylaxis: TEDs, aspirin, sequentials. Discharge plans: Home with home health care after a stay in a [facility] ([facility] An appointment was scheduled through the office. Prescriptions: [place] 7.5/325; Patient is having significant pain caused by recent surgery which will last more than 3 days. Trial of Tylenol has not helped. I believe that it is medically necessary to treat patients pain because it is affecting patients ability to participate in postoperative rehabilitation and perform activities of daily living in a comfortable and efficient manner.
--- NOTE | 2018-06-05 09:05 | P.PN ---
Physical Exam Vital signs: Vital Signs 06/04/18 12:00 06/04/18 16:00 06/04/18 22:05 Temperature 98.3 F 98.6 F 98.2 F Pulse Rate 77 74 71 Respiratory Rate 20 20 18 Blood Pressure 175/79 H 115/54 L 148/63 H Pulse Oximetry 91 L 94 L 93 L 06/05/18 00:30 06/05/18 02:30 06/05/18 04:00 Temperature 98.2 F 98.1 F Pulse Rate 67 60 Respiratory Rate 18 16 18 Blood Pressure 135/76 147/67 H Pulse Oximetry 96 93 L Intake & Output 06/04/18 06/05/18 06/05/18 18:59 06:59 18:59 Intake Total 2350 / 2350 720 / 720 Output Total 1100 / 1100 675 / 675 Balance 1250 / 1250 45 / 45 Intake: IV 2350 / 2350 LR 1000 mL Inj 1,000 ML @ 80 1300 / 1300 mls/hr IV.CONT .[id number] JEFF Rx# :[id number] LR 1000 mL Inj 1,000 ML @ 30 1000 / 1000 mls/hr IV.SIG .Q24H JEFF Rx#: [id number] Oral 720 / 720 Output: Urine 675 / 675 Urine Amount (Catheter) 1100 / 1100 Straight 1100 / 1100 Other: # Voids 1 Date of Last Bowel Movement 06/02/18 # Bowel Movements 0 # Emeses 1 Narrative: Subjective: BP is better controlled. Able to urinate with flomax Denies having any fever or chills no suprapubic pain. Physical examination: GENERAL: Patient in nad. CARDIOVASCULAR: Regular rate and rhythm without murmurs, gallops, or rubs. RESPIRATORY: Breath sounds equal bilaterally. No accessory muscle use. GASTROINTESTINAL: Abdomen soft, non-tender, nondistended. MUSCULOSKELETAL: S/P shoulder surgery. On sling and swath, neurovascular intact. No cyanosis, or edema. BACK: Nontender without obvious deformity. No CVA tenderness. Assessment and Plan Primary osteoarthritis, right shoulder Right total shoulder using [place] ReUnion prosthesis on 06/03/[address] Queen Management per surgeon Bowel regimen, antiemetics as needed Sore throat after surgery , add cepachol del , improved Urinary retention start flomax UA neg HTN uncontrolled BP into a higher side prob 2/2 pain Add vasotec IV 2.5 mg IV if SBP > 160 Continue lisinopril Monitor BP and adjust as need Chronic medical problems appears at baseline. Hypertension, depression. Restart home medications as appropriate. Monitor vital signs. DVT prophylaxis per surgeonFederico Discussed with the patient, nurse Assessment and Plan Primary osteoarthritis, right shoulder Right total shoulder using [place] ReUnion prosthesis on 06/03/[address] Queen Management per surgeon Bowel regimen, antiemetics as needed Sore throat after surgery , add cepachol del Chronic medical problems appears at baseline. Hypertension, depression. Restart home medications as appropriate. Monitor vital signs. DVT prophylaxis per surgeonKimnox Discussed with the patient, nurse - Urinary Catheter Management Straight Cath placed during this visit: yes, but has since been removed by the nurse Reason for continuing: Not indwelling catheter Insertion date: 06/04/18 Insertion time: 06:00 Removal date: 06/04/18 Removal time: 06:15 Results - Labs CBC & Chem 7: 06/05/18 03:57 06/04/18 11:38 Laboratory Results - last 24 hr 06/04/18 06/04/18 06/04/18 11:38 11:38 14:30 WBC 13.3 H RBC 4.02 L Hgb 11.9 L Hct 36.7 L MCV 91.3 MCH 29.7 MCHC 32.5 RDW 13.7 Plt Count 216 MPV 7.5 Neut % (Auto) 76.1 H Lymph % (Auto) 9.3 [place] % (Auto) 13.7 H Eos % (Auto) 0.5 Baso % (Auto) 0.4 Neut # (Auto) 10.1 H Lymph # (Auto) 1.2 [place] # (Auto) 1.8 H Eos # (Auto) 0.1 Baso # (Auto) 0.1 WBC Differential . Differential Comment Auto diff final Sodium 135 L Potassium 4.4 Chloride 96 L Carbon Dioxide 27.2 Anion Gap 12 BUN 21 H Creatinine 1.04 Estimated GFR 70 L Random Glucose 80 Calcium 8.8 Total Bilirubin 0.9 AST 26 ALT 17 Alkaline Phosphatase 84 Total Protein 6.6 Albumin 3.3 L Urine Color Yellow Urine Clarity Clear Urine pH 6.0 Ur Specific [place] 1.008 Urine Protein Negative Urine Glucose (UA) Negative Urine Ketones Negative Urine Occult Blood Moderate H Urine Nitrate Negative Urine Bilirubin Negative Urine Urobilinogen Less than 2 Ur Leukocyte Esterase Negative Urine RBC 12 H Urine WBC 1 Urine Bacteria Rare H 06/05/18 03:57 WBC RBC Hgb 9.7 L D Hct 28.3 L MCV MCH MCHC RDW Plt Count MPV Neut % (Auto) Lymph % (Auto) [place] % (Auto) Eos % (Auto) Baso % (Auto) Neut # (Auto) Lymph # (Auto) [place] # (Auto) Eos # (Auto) Baso # (Auto) WBC Differential Differential Comment Sodium Potassium Chloride Carbon Dioxide Anion Gap BUN Creatinine Estimated GFR Random Glucose Calcium Total Bilirubin AST ALT Alkaline Phosphatase Total Protein Albumin Urine Color Urine Clarity Urine pH Ur Specific [place] Urine Protein Urine Glucose (UA) Urine Ketones Urine Occult Blood Urine Nitrate Urine Bilirubin Urine Urobilinogen Ur Leukocyte Esterase Urine RBC Urine WBC Urine Bacteria Assessment and Plan - Plan Primary osteoarthritis, right shoulder Right total shoulder using [place] ReUnion prosthesis on 06/03/[address] Queen Management per surgeon Bowel regimen, antiemetics as needed Sore throat after surgery , add cepachol del Chronic medical problems appears at baseline. Hypertension, depression. Restart home medications as appropriate. Monitor vital signs. DVT prophylaxis per surgeonFederico Discussed with the patient, nurse
[2018-06-05] MEDS: Lisinopril 10 MG Tablet PO SCH (09:50)
[2018-06-05] MEDS: Senna/Docusate Sodium 8.6/50 MG Tablet PO SCH ×2 (09:51→20:50)
[2018-06-05] MEDS: FLUoxetine 20 MG Capsule PO SCH (09:51)
--- NOTE | 2018-06-05 10:46 | MB ---
cc: EdgardAustinRafy Renetta DO DATE: 06/05/2018 HISTORY OF PRESENT ILLNESS: Mr. Prieto is a 72-year-old male who recently had right-sided shoulder surgery and developed urinary retention postoperatively. Prior to his admission, he states that he was getting up about 4 times at night with a moderate stream. He states this was not bothersome. He denies having any prostate issues in the past. He denies any urinary tract infections or gross hematuria. He does note a moderate stream at times. The patient was recently started on Flomax and today he is currently voiding. The catheter was removed yesterday. PAST MEDICAL HISTORY: Anemia, arthritis, depression, hypertension, right shoulder osteoarthritis. PAST SURGICAL HISTORY: Recent right shoulder surgery, abdominoplasty, appendectomy, kyphoplasty, laminectomy, left shoulder replacement, bilateral knee replacement, right hip arthroplasty, history of tonsillectomy. SOCIAL HISTORY: Denied smoking. He drinks approximately 4 times a week. No drug abuse history is noted. MEDICATIONS: Refer to the chart. ALLERGIES: HE HAS MULTIPLE ALLERGIES: Please refer to the chart. REVIEW OF SYSTEMS: Denies abdominal pain, nausea, or chest pain or shortness of breath, recent right shoulder surgery causing right shoulder pain. Nocturia x 4, incomplete emptying noted. Denies gait disturbances, bleeding disorder, skin lesions, chest pain, diarrhea or constipation. The remaining review of systems reviewed are negative. PHYSICAL EXAMINATION: VITAL SIGNS: Today, temperature 98.1, heart rate 60, respiratory rate 18, 147/67, blood pressure, 93% on room air. GENERAL: He is a well-developed, well-nourished 72-year-old male in no acute distress. HEENT: Normocephalic, atraumatic. Pupils equal, round, regular and reactive to light. Extraocular movements intact. NECK: Supple. HEART: Regular rate and rhythm. LUNGS: Clear. ABDOMEN: Soft, nontender, nondistended. GENITOURINARY: Normal phallus. Testes are descended. EXTREMITIES: Show no evidence of cyanosis, clubbing, or edema. He does have a right sling in place. LABORATORY DATA: White count 13.3, hemoglobin 9.7, hematocrit 28.3, platelet count of 216. Sodium 135, potassium 4.4, chloride 96, CO2 27.2, BUN 21, creatinine 1.04, glucose of 80. Urinalysis shows 12 red cells, 1 white cell. ASSESSMENT AND PLAN: A 72-year-old male with recent urinary retention postoperatively with history of nocturia x 4. Would recommend continuing Flomax 0.4 mg on an outpatient basis. This will help treat his nocturia and incomplete bladder emptying. Wean narcotics as appropriate. The patient to followup with his primary care physician after discharge. Thank you for the consult and allowing me to participate in the care of this patient. Rafy Rene DO SWMartha/ABY , 10:30 AM , 10:45 AM
--- NOTE | 2018-06-06 06:43 | P.PNOP ---
Subjective Interval history: He is doing well. He has minimal complaints related to his shoulder at this time. He has a few questions about activities. Physical Exam Vital signs: Vital Signs 06/05/18 12:00 06/05/18 16:00 06/05/18 19:31 Temperature 98.7 F 98.4 F 98.9 F Pulse Rate 67 70 78 Respiratory Rate 17 18 18 Blood Pressure 118/58 L 133/59 L 125/58 L Pulse Oximetry 97 94 L 94 L 06/05/18 23:43 06/06/18 03:18 Temperature 98.0 F 98.0 F Pulse Rate 68 64 Respiratory Rate 18 18 Blood Pressure 121/57 L 144/65 H Pulse Oximetry 96 95 Intake & Output 06/05/18 06/05/18 06/06/18 06:59 18:59 06:59 Intake Total 720 / 720 Output Total 675 / 675 1250 / 1250 Balance 45 / 45 -1250 / -1250 Intake: Oral 720 / 720 Output: Urine 675 / 675 1250 / 1250 Other: # Voids 1 Date of Last Bowel Movement 06/02/18 05/31/18 # Bowel Movements 0 # Emeses 1 Narrative: He is resting comfortably, supine in bed, in the sling. The neurovascular status is intact. Dressing is dry and intact. - Urinary Catheter Management Straight Cath placed during this visit: yes, but has since been removed by the nurse Reason for continuing: Not indwelling catheter Insertion date: 06/04/18 Insertion time: 06:00 Removal date: 06/04/18 Removal time: 06:15 Results - Labs CBC & Chem 7: 06/05/18 03:57 06/04/18 11:38 Assessment and Plan - Problem List (1) Status post total replacement of right shoulder Code(s): Z96.611 - Presence of right artificial shoulder joint Status: Acute Onset Date: ~06/03/18 - Assessment and Plan Condition: Good. Orthopedically stable. DVT prophylaxis: TEDs, aspirin, sequentials. Discharge plans: Home with home health care after a stay in a [facility] facility ([facility]). An appointment was scheduled through the office. Prescriptions: [place] 7.5/325; Patient is having significant pain caused by recent surgery which will last more than 3 days. Trial of Tylenol has not helped. I believe that it is medically necessary to treat patients pain because it is affecting patients ability to participate in postoperative rehabilitation and perform activities of daily living in a comfortable and efficient manner.
--- NOTE | 2018-06-06 07:02 | P.DS ---
Date of admission: 06/03/18 07:04 Primary care physician: Bob Layne MD Attending physician on discharge: Erasmo Queen Anticipated date of discharge: 06/06/18 Brief History from admission: This 72-year-old man has had long-standing arthritis in his right shoulder which has been nonresponsive to conservative measures as detailed in the history and physical examination. Limited ability to do activities of daily living. His physical findings at the time of admission showed severe crepitation on range of motion, limited range of motion and some tenderness about the shoulder. X-ray showed severe osteoarthritis in the shoulder down to expose subchondral bone with loss of articular cartilage, eburnation and osteophytes. DS: Diagnosis - Discharge Diagnosis (1) Status post total replacement of right shoulder Status: Acute (2) Primary osteoarthritis, right shoulder Status: Resolved (3) Postoperative urinary retention Status: Acute DS: Medications - Discharge Medications Prescriptions: RX: hydrocodone-acetaminophen 1 tab PO Q4H PRN 7 Days tab PRN Reason: Pain, Severe DS: Summary Hospital Course: The patient was admitted as noted above. The above noted operative procedure was carried out that day. Preoperatively prophylactic antibiotics were administered Ancef according to protocol. These were continued postoperatively. The patient also received tranexamic acid to help with hemostasis according to protocol. In the postanesthesia care unit mechanical methods of DVT prophylaxis in the form of JENNIFER stockings and sequentials were initiated. Physical therapy was initiated on the day of surgery. On postoperative day #1 physical therapy continued. DVT prophylaxis with aspirin 81 mg was initiated at this time. The patient continued physical therapy throughout the hospitalization. The distance walked and range of motion improved throughout the hospitalization. His shoulder motion also improved. The patient was discharged on postoperative day 3 with the disposition being to a correction facility for rehabilitation ([facility]). An appointment for follow-up was made prior to admission. - Time Spent with Patient Total time spent providing and/or coordinating discharge services: - Quality: VTE Deep Vein Thrombosis/Pulmonary Embolism Present on Admission: No Exam Vital signs: Vital Signs 06/05/18 12:00 06/05/18 16:00 06/05/18 19:31 Temperature 98.7 F 98.4 F 98.9 F Pulse Rate 67 70 78 Respiratory Rate 17 18 18 Blood Pressure 118/58 L 133/59 L 125/58 L Pulse Oximetry 97 94 L 94 L 06/05/18 23:43 06/06/18 03:18 Temperature 98.0 F 98.0 F Pulse Rate 68 64 Respiratory Rate 18 18 Blood Pressure 121/57 L 144/65 H Pulse Oximetry 96 95 Intake & Output 06/05/18 06/05/18 06/06/18 06:59 18:59 06:59 Intake Total 720 / 720 Output Total 675 / 675 1250 / 1250 Balance 45 / 45 -1250 / -1250 Intake: Oral 720 / 720 Output: Urine 675 / 675 1250 / 1250 Other: # Voids 1 Date of Last Bowel Movement 06/02/18 05/31/18 # Bowel Movements 0 # Emeses 1 Narrative: He is resting comfortably, supine in bed. The wound is clean and dry and healing well. Dressing is dry and intact. The neurovascular status is intact. Results Procedures completed during hospitalization: Right total shoulder with [place] ReUnion prosthesis on 06/03/2018 - Impressions ITS Impressions Shoulder X-Ray 06/03/18 13:55 CONCLUSION: Satisfactory postoperative appearance of the right shoulder joint following replacement. Discharge Plan - Discharge Disposition Patient Disposition: Discharge to SNF - Discharge Condition Condition: Stable - Discharge Order Discharge Orders: Discharge Order (Routine); Ordered 06/04/18 Ordered By: Erasmo Queen - Discharge Details Anticipated Discharge Date: 06/06/18 Discharge Comment: He has an appointment previously scheduled at the office of Erasmo Queen MD. - Physicians Team Primary Care Provider: Bob Layne Attending Provider: Erasmo Queen Other Providers: Rafy Rene DO ; Ronen Nicholas DO - Rxs /Orders / Referrals /Forms Prescriptions: New hydrocodone-acetaminophen 7.5-325 mg Tablet 1 tab PO Q4H PRN (Reason: Pain, Severe) 7 Days RF: 0 tamsulosin 0.4 mg Capsule,Extended Release 24hr 0.4 mg PO DAILY RF: 0 Continue acetaminophen [Tylenol] 325 mg Tablet 1,300 mg PO DAILY PRN (Reason: Pain) fluoxetine [Prozac] 40 mg Capsule 80 mg PO DAILY lisinopril 10 mg Tablet 10 mg PO DAILY meloxicam 15 mg Tablet 15 mg PO DAILY [id number] [Centrum Silver Ultra Men's] 300-600-300 mcg Tablet 1 tab PO DAILY Referrals: Bob Layne MD [Primary Care Provider] - See Instructions - Discharge Instructions Additional Instructions: The sling and swath on his shoulder does not need to be used time, only when sleeping. He should be out of the sling and swath during the day and using the shoulder gently. Therapy should be done twice daily. This should include active, active assisted and gentle passive range of motion of the shoulder. He should also use pendulum exercises and forward flexion passive table slides. Precautions include: Avoidance of external rotation beyond neutral in the right shoulder (0) and avoidance of resisted internal rotation of the right shoulder for 6 weeks. The Dermabond Prineo dressing on his right shoulder should remain in place for at least 14 days postop. - Post Discharge Care Plan Care Plan Goals: Your Health Problems: Goals to Promote Your Health: * To prevent worsening of your condition * To maintain your health at the optimal level Directions to Meet Your Goals: * Take your medications as prescribed * Follow your dietary instruction * Follow activity as directed * Keep your appointments as scheduled * Take your immunizations and boosters as scheduled * If your symptoms worsen call your PCP * If no PCP go to Urgent Care or Emergency Room Smoking is dangerous to your health. Avoid second hand smoke. You may reach the 24-hour crisis hotline for domestic abuse at .
[2018-06-06] MEDS: Senna/Docusate Sodium 8.6/50 MG Tablet PO SCH (09:41)
[2018-06-06] MEDS: Lisinopril 10 MG Tablet PO SCH (09:41)
[2018-06-06] MEDS: FLUoxetine 20 MG Capsule PO SCH (09:42)
== END 2018-06-06 11:15 ==
LOC: HSDI 07:04 → N06 16:55 → UNDODISIN 06-06 10:54
PROVIDERS: ADMIT Orthopaedic Surgery; ATTEND Orthopaedic Surgery